=== PATIENT | female | born 1990 | race Caucasian/White ===

== ENCOUNTER 2019-11-17 09:35 | Emergency (ER) | payer OTHER ==
[~2019-11-17] VITALS: Ht 152.4 cm; Wt 59.0 kg
== END 2019-11-17 14:27 | disposition home or self-care (01) ==
LOC: ER 09:35
DX: K80.20 Calculus of gallbladder without cholecystitis without obstruction (principal)

== ENCOUNTER 2021-11-17 18:54 | Emergency (ER) | payer OTHER ==
[~2021-11-17] VITALS: Ht 152.4 cm; Wt 72.6 kg
[2021-11-17] MEDS ORDERED: CLARITIN (21:27)
[2021-11-17] MEDS ORDERED: PANADOL (21:27)
== END 2021-11-18 00:03 | disposition home or self-care (01) ==
LOC: ER 18:54
DX: U07.1 COVID-19 (principal)